=== PATIENT | female | born 1960 | race Caucasian/White ===

== ENCOUNTER → 2022-03-22 13:16 | Outpatient (BNVA) | payer OTHER, SELFPAY | PROVIDERS: Visit Provider Nurse Practitioner Family | DX: G90.511 Complex regional pain syndrome I of right upper limb (principal); M79.641 Pain in right hand; Z87.828 Personal history of other (healed) physical injury and trauma | CPT/HCPCS: 99202 ==

== ENCOUNTER 2022-04-17 06:16 | Outpatient (REF) | payer OTHER, SELFPAY | END 2022-04-17 06:17 | disposition home or self-care (01) | LOC: CF 06:16 | PROVIDERS: Visit Provider Internal Medicine | DX: G90.511 Complex regional pain syndrome I of right upper limb (principal); M79.641 Pain in right hand | CPT/HCPCS: 64415 ==

== ENCOUNTER → 2022-04-19 08:36 | Outpatient (BNVA) | payer OTHER, SELFPAY | PROVIDERS: PCP Physical Medicine & Rehabilitation; Visit Provider Nurse Practitioner Family | DX: Z13.89 Encounter for screening for other disorder (principal) ==

== ENCOUNTER 2022-05-29 06:14 | Outpatient (REF) | payer OTHER, SELFPAY | END 2022-05-29 06:15 | disposition home or self-care (01) | LOC: CF 06:14 | PROVIDERS: Visit Provider Internal Medicine | DX: G90.511 Complex regional pain syndrome I of right upper limb (principal) | CPT/HCPCS: 64510; J1100 ==

== ENCOUNTER → 2022-06-28 11:01 | Outpatient (BNVA) | payer OTHER, SELFPAY | PROVIDERS: PCP Physical Medicine & Rehabilitation; Visit Provider Nurse Practitioner Family ==

== ENCOUNTER 2022-08-21 06:07 | Outpatient (REF) | payer OTHER, SELFPAY | END 2022-08-21 06:08 | disposition home or self-care (01) | LOC: CF 06:07 | PROVIDERS: Visit Provider Internal Medicine | DX: M79.641 Pain in right hand (principal); G90.511 Complex regional pain syndrome I of right upper limb | CPT/HCPCS: 64510; J1100 ==

== ENCOUNTER → 2022-09-27 13:14 | Outpatient (BNVA) | payer OTHER, SELFPAY | PROVIDERS: PCP Physical Medicine & Rehabilitation; Visit Provider Nurse Practitioner Family | DX: M79.641 Pain in right hand (principal); G90.519 Complex regional pain syndrome I of unspecified upper limb; G89.29 Other chronic pain | CPT/HCPCS: 99212 ==

== ENCOUNTER → 2022-12-12 14:38 | Outpatient (BNVA) | payer OTHER, SELFPAY | PROVIDERS: PCP Physical Medicine & Rehabilitation; Visit Provider Nurse Practitioner Family ==

== ENCOUNTER 2022-12-12 14:47 | Outpatient (AMB) | payer MEDICAID, SELFPAY ==
[2022-12-12 14:38] VITALS: BMI 29.5
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
== END 2022-12-12 14:58 | disposition home or self-care (01) ==
PROVIDERS: PCP Physical Medicine & Rehabilitation; Visit Provider Nurse Practitioner Family
DX: G90.519 Complex regional pain syndrome I of unspecified upper limb (principal); M79.641 Pain in right hand; G56.91 Unspecified mononeuropathy of right upper limb
CPT/HCPCS: 99214

== ENCOUNTER 2023-01-13 14:53 | Outpatient (REF) | payer OTHER, SELFPAY ==
--- NOTE | ~2023-01-13 | CT_ITS ---
EXAMINATION: CT CERVICAL SPINE WITHOUT CONTRAST CLINICAL INFORMATION: Complex regional pain syndrome of unspecified upper limb. COMPARISON: None available. TECHNIQUE: Multidetector CT acquisitions of the cervical spine was obtained without IV contrast. This CT examination was performed using dose optimization techniques as appropriate, variously including the following: *Automated exposure control *Adjustment of mA and/or kV according to patient size (this includes techniques or standardized protocols for targeted exams where dose is matched to indication/reason for exam; i.e. extremities or head) *Use of iterative reconstruction technique DLP: 460.2 mGy-cm FINDINGS: Reversal of the normal cervical lordosis. Grade 1 anterolisthesis at C3-4 and C4-5. The vertebral body heights are preserved. Multilevel disc space narrowing. C2-3: Right greater than left facet arthrosis. No significant spinal canal or neural foraminal narrowing. C3-4: Right greater than right facet arthrosis with chronic fracture deformity of the left facet and transverse foramen. Bilateral uncovertebral hypertrophy. No significant spinal stenosis. Mild left neural foraminal narrowing. C4-5: Disc osteophyte complex and left greater than right facet arthrosis. No significant spinal canal or neural foraminal narrowing. C5-6: Disc osteophyte complex and bilateral uncovertebral hypertrophy. Right greater than left facet arthrosis. No significant spinal canal or neural foraminal narrowing. C6-7: Disc osteophyte complex, bilateral uncovertebral hypertrophy, and bilateral facet arthrosis. No significant spinal canal or neural foraminal narrowing. C7-T1: No significant spinal canal or neural foraminal narrowing. The paravertebral soft tissues are unremarkable. The visualized lung apices are clear. CT/CT cervical spine wo IV con IMPRESSION: Multilevel lumbar spondylosis as described above, without significant spinal canal stenosis. Of note, there is mild neural foraminal narrowing at C3-4.
== END 2023-01-13 14:54 | disposition home or self-care (01) ==
LOC: HO.CT 14:53
PROVIDERS: Visit Provider Nurse Practitioner Family
DX: G90.511 Complex regional pain syndrome I of right upper limb (principal); M79.641 Pain in right hand; G56.91 Unspecified mononeuropathy of right upper limb
CPT/HCPCS: 72125